=== PATIENT | male | born 1980 | race Caucasian/White ===

== ENCOUNTER 2023-11-14 13:10 | Outpatient (REF) | payer OTHER, SELFPAY | END 2023-11-14 13:11 | disposition home or self-care (01) | LOC: HO.BBR 13:10 | PROVIDERS: Visit Provider Physician Assistant | DX: D75.1 Secondary polycythemia (principal) | CPT/HCPCS: 85014; 85018; 99195 ==

== ENCOUNTER 2024-06-10 10:56 | Outpatient (REF) | payer OTHER, SELFPAY | END 2024-06-10 10:57 | disposition home or self-care (01) | LOC: HO.BBR 10:56 | PROVIDERS: Visit Provider Family Medicine | DX: D75.1 Secondary polycythemia (principal) | CPT/HCPCS: 85018; 99195 ==

== ENCOUNTER 2024-09-11 13:01 | Outpatient (REF) | payer OTHER, SELFPAY ==
--- OUTSIDE RECORDS SUMMARY | 2024-09-11 14:08 | XMS_ITS | Continuity of Care Document ---
Author Organization [facility] Address [address] [address] [place] [address] Phone Care Team Providers Care Awning Hanger Supervisor Name Role Phone [place] OD, Chasity Unavailable Unavailable Allergies, Adverse Reactions, [...] Date Provider Providers Copied on Encounter [facility], [address] [address], [place], [place], [address], tel:[phone] [facility] The patient reports stable vision (chief complaint) Examination of eyes and vision with abnormal findings Z01.01Myopia , bilateral H52.13 1 Eileen Gaspar. [address], [address], [place], [place], [address], [place]. tel:[phone] Referring Provider: Chasity Linda, [employer] [address], [place], [address]. tel:[phone] [facility], [address] [address], [place], [place], [address], tel:[phone] [place] Patient presents for a contact lens fitting. (chief complaint) Myopia, bilateral H52.13 201 8 Eileen Gaspar. [address], [address], [place], [place], [address], [place]. tel:[phone] Referring Provider: Chasity Linda, [address], [place], [address]. 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 [address], [address], [place], [place], [address], [place]. tel:[phone] Referring Provider: Saul Thompson, [address], [place], [address]. tel:[phone] [facility], [address] [address], [place], [place], [address], tel:[phone] [place] No Information 8 Update [employer]. [employer] [address], [place], [place], [address]. tel:[phone] [facility], [address] [address], [place], [place], [address], [place] tel:[phone] [place] Patient presents to clinic for comprehensive eye with c (chief complaint)Susi soto reports blurred vision in left eye starting 1 m (chief complaint) Chronic giant papillary conjunctivit is, bilateral H10.413Benig n neoplasm of right retina D31.21Vitreo us floaters, bilateral H43.393Dry eye syndrome of bilateral lacrimal glands H04.123Myopi a, bilateral H52.13Examin ation of eyes and vision with abnormal findings Z01.01 8 Guero Hughes. [employer] [address], [address], [place], [place], [address], . tel:[phone] Referring Provider: Saul Thompson, [address], [place], [address]. tel:[phone] Family History Family Member Type Diagnosis Age At Onset Problem (finding) No relevant family hist ory Payers Payer name Insurance type Covered republican ID Authoriza tion(s) [employer] Plan CI [id number] Social History Type Description Quantity Date Captured [...] Patient educated on the risks associated with shelter use of steroids. Related to Chronic giant papillary conjunctivitis, bilateral H10.413 - Spec Rx given at patient's [facility] uest Related to Myopia, bilateral H52.13 [...]
== END 2024-09-11 13:02 | disposition home or self-care (01) ==
LOC: HO.BBR 13:01
PROVIDERS: Visit Provider Family Medicine
DX: D75.1 Secondary polycythemia (principal)
CPT/HCPCS: 85018; 99195

== ENCOUNTER 2024-12-10 12:56 | Outpatient (REF) | payer OTHER, SELFPAY ==
--- OUTSIDE RECORDS SUMMARY | 2024-12-10 15:34 | XMS_ITS | Data Portability ---
Author Organization [facility] Address [address] [place] [address] Care Team Providers Care Emergency Dept Tech Name Role Phone ALEX STOUT Primary Care Provider ALEX STOUT Referring Provider [phone] Assessment Encounter Date Assessment Date Assessment LastModified by Organization Details LastModified Time 07/06/2016 07/06/2016 vaginal atrophy; urinary frequecy adisciullo Not available 07/06/2016 15:57:35 Plan of Treatment Reminders Order Date Submit Date Provider Last Modified By Organization Details Last Modified Time Details Appointments None recorded. Lab pap, LB + HR HPV 2015 [facility] (Lab), [address], [place], [address], 6 14:24:02 urinalysi s, dipstick 2015 016 adisciullo Not available 6 07:48:59 Referral None recorded. Procedures measureme nt of post-void ing residual urine and/or bladder capacity (PROC) 2015 016 adisciullo Not available 07:48:59 Surgeries None recorded. Imaging None recorded. Medication Orders Vagifem 10 mcg vaginal tablet 2015 016 adisciullo [id number], [address] , [place], [address], 6 16:02:25 Patient TargetsNo targets recorded. Patient Instructions Encounter Date Encounter Id Patient Instructions Last Modified By Organization Details Last Modified Time 07/06/2016 [id number] atrophic vaginitis: care instructions teenaarmand Not available 07/12/2016 08:57:46 Vaginal atrophy may be cause of urinary frequency, a symptom which is quite bothersome. Vagifem will be prescribed. Cystoscopy will be scheduled adisciullo Not available 07/06/2016 16:02:25 Reason for Referral None Reported. Results Created Date Observation Date Name Description Value Unit Range Abnormal Flag Note LastModifiedBy Organization Detail LastModifiedTime 07/06/20 16 07/06/2016 urina lysis , dipst ick leukocytes negati ve Not Available [facility] Urogyn [id number] 07/06/2016 15:47:07 07/06/20 16 07/06/2016 urina lysis , dipst ick nitrite negati ve Not Available [facility] n Urogyn [id number] 07/06/2016 15:47:07 07/06/20 16 07/06/2016 urina lysis , dipst ick blood negati ve Not Available [facility] Urogyn [id number] 07/06/2016 15:47:07 07/06/20 16 07/06/2016 measu remen t of post- voidi ng resid ual urine and/o r bladd er capac ity (PROC ) Method Bladde r Scan Not Available [facility] n Urogyn 52705 07/06/2016 15:47:07 07/06/20 16 07/06/2016 measu remen t of post- voidi ng resid ual urine and/o r bladd er capac ity (PROC ) Value 30mL Not Available [facility] Violetasonia moya Urogyn [id number] 07/06/2016 15:47:07 07/06/20 16 07/06/2016 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 [address] PAGE 1 RUN TIME: 1204 Speci men Inqui ry RUN USER: MEDIT ECH ----- ----- ----- ----- ----- ----- ----- ----- ----- ----- ----- ----- ----- ----- ----- ----- ----- ----- -- PATIE NT: JANENEMAGALY STELLASHELLEY 295 LOC: [facility] #: [id number] AGE/S X: 36/F ROOM: RE07/[address]: Alex Urbano M.D. : 02/03 BED: DIS: STATU S: REG REF TLOC: ----- ----- ----- ----- ----- ----- ----- ----- ----- ----- ----- ----- ----- ----- ----- ----- ----- ----- -- SPEC #: [id number] RECD: 07/07 608 STATU S: SOUT REQ #: [id number] FANNIE: 07/06- SUBM DR: Alex Urbano M.D. 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 VAGIN A ELIZABETH Stallings dum #1 Enter ed: 07/18- 203 ELIZABETH KEITA TO REPOR T: Insuf ficie nt fluid remai lupillo for HPV mRNA madeleine sis by Holog ic HPV assay . At least 1.0ml of ThinP rep sampl e must remai n follo wing cytol ogic madeleine sis. Elizabeth MARQUEZ CT( CP),G 07/18 1203 ----- ----- ----- ----- ----- ----- ----- ----- ----- ----- ----- ----- ----- ----- ----- ----- ----- ----- -- FINAL DIAGN OSIS NEGAT LONI FOR INTRA EPITH ELIAL LAURENT Frias OR MALKA WILL . HPV DNA testi ng for high risk subty pes will be perfo rmed at the reque st of order ing mary dickinson and the resul t will be repor myrtle in an adden dum. Atrop sandeep al es prese nt. Mala Hight on, CT( CP) Repor t Elect tram urena This Pap test was scree lupillo using the compu teriz ed ThinP rep Imagi ng Syste m, then nafisa huerta revsukh wed and inter prete d. CLINI DIANE HISTO RY MENST RUAL STATU S : POST MENOP AUSAL PREVI OUS ABNOR MAL: NOT GIVEN GONSALO GOMEZ ON NEXT PAGE ----- ----- ----- ----- ----- ----- ----- ----- ----- ----- ----- ----- ----- ----- ----- ----- ----- ----- -- RUN DATE: 07/18 [place] [address] PAGE 2 RUN TIME: 1204 Speci men Inqui lior RUN USER: JOSIAH RESTREPO ----- ----- ----- ----- ----- ----- ----- ----- ----- ----- ----- ----- ----- ----- ----- ----- ----- ----- -- SPEC #: [id number] PATIE NT: [facility] #[id number] (Cont inued ) ----- ----- ----- ----- ----- ----- ----- ----- ----- ----- ----- ----- ----- ----- ----- ----- ----- ----- -- CLINI DIANE HISTO RY (Cont inued ) CLINI DIANE HISTO RY OTHER : HPV TESTI NG IF NEGAT LONI MYRIAM PAP [facility] ACY:Marie Jeffries FOR INTER PRETA TION ----- ----- ----- ----- ----- ----- ----- ----- ----- ----- ----- ----- ----- ----- ----- ----- ----- ----- -- Angie urena DEAN ON CT( CP)Alexy IS 07/17 1421 ----- ----- ----- ----- ----- ----- ----- ----- ----- ----- ----- ----- ----- ----- ----- ----- ----- ----- -- END OF REPOR T Not Available [facility] [address], [place], [address], 07/18/2016 12:04:45 07/06/20 16 07/06/2016 HPV, high- risk, cervi diane HPV request CANCEL LED Not Available [facility] [address] [place], [address], 07/18/2016 10:55:17 Result Notes None recorded. Problems Name Problem SNOMED Code Status Onset Date Resolution Date Notes Provider Name and Address Organization Details Recorded Time Atrophic vaginitis 77203845 Active Kevin Allen MD [address] [place], [address] , [facility] 6 16:02:25 Problem Notes None recorded. Procedures Surgical History Date Name Laterality Status Provider Name and Address Organization Details Recorded Time 9 Hysterectomy completed [facility] 07/06/2016 15:33:50 5 Mastectomy completed [facility] 07/06/2016 15:33:50 Imaging Results None recorded. Procedure Notes None recorded. Medical Equipment None Reported. Medications Name Sig Start Date Stop Date Status Note LastModified by Organization Details LastModified Time doxycycline hyclate 100 mg capsule active Not Available Not Available Not Available metronidazole 500 mg tablet active Not Available Not Availabl e Not Available ciprofloxacin 500 mg tablet active Not Available Not Availabl e Not Available amoxicillin 500 mg tablet active Not Available Not Availabl e Not Available imiquimod 5 % topical cream packet active Not Available Not Available Not Available testosterone cypionate 200 mg/mL intramuscular oil active Not Available Not Available Not Available BD Luer-Luis E Syringe 3 mL 18 x 1 1/2 active Not Available Not Available Not Available BD Luer-Luis E Syringe 3 mL 22 x 1 1/2 active Not Available Not Available Not Available doxycycline hyclate 100 mg tablet active Not Available Not Available Not Available Truvada 200 mg-300 mg tablet active Not Available Not Available Not Available Yuvafem 10 mcg vaginal tablet INSERT 1 TABLET EVERY DAY BY VAGINAL ROUTE FOR 14 DAYS DIRECTED THEN TWICE A WEEK active Not Available Not Available No t Available Vitals Date Recorded Body height Body mass index (BMI) Body weight Systolic blood pressure Diastolic blood pressure Provider Name and Address Organization Details Last Updated DateTime 07/06/2016 172.72 cm 24.9 kg/m2 75785.14 868 g 120 mm[Hg] 80 mm[Hg] [facility] 6 15:27:41 Social History Question Answer Notes LastModified by Organizat ion Details LastModified Time Tobacco Smoking Status Former Smoker [facility] [place] [place] - [facility] 07/06/2016 15:33:50 What Is Your Level Of Alcohol Consumption? Occasional Information not available 07/06/2016 What Type Of Diet Are You Following? REGULAR Information not available 07/06/2016 Which Illicit Or Recreational Drugs Have You Used? 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 No Information not available 07/06/2016 Sex: Unknown Functional Status None recorded. Mental Status None recorded. Family History Relationship Description Onset Age of this Age Resolved Age Notes LastModified by Organization Details LastModified Time Paternal Grandmother Malignant tumor of breast fmcneil Not available 2015 15:33:50 Medical History Condition Response Diabetes N Other N Thyroid Disease N High Blood Pressure N Lung Disorder or Asthma N Hyperlipidemia N Cancer N Kidney or Bladder Problems N Cardiac Disease N Anemia or Blood Disorder N GI Disorders N Neurologic Disease N None Reported N Psychiatric Disease Y Osteoporosis N Thrombophilias N Gynecological History Statement/Question Response Date of Last Mammogram None Date of Last Bone Density Test None Date of Last Colonoscopy None Date of Last Pap 8 years ago Sexual Activity Yes Abnormal Pap None Obstetrics History GPAL:G 0 P 0 0 0 0 Past Encounters Encounter ID Performer Location Encounter Start Date Encounter Closed Date Diagnosis/Indication Diagnosis SNOMED-CT Code Diagnosis ICD10 Code Diagnosis Note [id number] Kevin Allen MD [facility] [address] [place] [address] 07/06/2016 15:23:20 07/06/2016 15:59:27 Atrophic vaginitis 80212902 N95.2 Increased frequency of urination 046559661 R35.0 Gynecologi c examination 37844904 Z01.419 Health Concerns Section Related Observation LastModified by Organization Detai ls LastModified Time None Recorded Concern Status LastModified by Organization Details LastModified Time None Recorded Advance Directives Directive None Recorded Payers Encounter Date Sequence Insurance Name Policy Number Policy Silva Covered Member ID Silva Member ID Guarantor Name 07/06/2016 1 [facility] Freda Rivero [id number] Freda Rivero Notes Date Note Type Note Provider Name and Address Organization Details Recorded Time 07/06/2016 text/html 36 yo transgende r ([id number]) with a 2 month history of uriary frequency q2h and nocturia x1. He has had hysterectomy and BSO, on IM testosterone therapy for 12 years. Not sexually active at this time. Has had some abdominal pain and cramps, sometimes associated with voiding. Recent CT was unremarkable. No hx kidney stones. Three recent urine tests negative for infection. He has also had abdominal pain especially in RLQ. Mesenteric adenittis and colitis have resolved according to recent CT Kevin Allen MD [address] [place], [address], [facility] 07/06/2016 16:05:01 OBGyn Episode No OBEpisode recorded.
--- OUTSIDE RECORDS SUMMARY | 2024-12-10 15:34 | XMS_ITS | Continuity of Care Document ---
Author Organization [facility] Address [address] [address] [place] [address] Phone Care Team Providers Care Thermal Molder Name Role Phone Ogden OD, Chasity Unavailable Unavailable Allergies, Adverse Reactions, [...] Date Provider Providers Copied on Encounter [facility], [address] [address], [place], [place], [id number], tel:[phone] [facility] The patient reports stable vision (chief complaint) Examination of eyes and vision with abnormal findings Z01.01Myopia , bilateral H52.13 1 Eileen Gaspar. [address], [address], [place], [place], [id number], [place]. tel:[phone] Referring Provider: Chasity Linda, [facility] [address], [place], [address]. tel:[phone] [facility], [address] [address], [place], [place], [id number], tel:[phone] [place] Patient presents for a contact lens fitting. (chief complaint) Myopia, bilateral H52.13 201 8 Eileen Gaspar. [address], [address], [place], [place], [id number], [place]. tel:[phone] Referring Provider: Chasity Linda, [address], [place], [address]. 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 [address], [address], [place], [place], [id number], [place]. tel:[phone] Referring Provider: Saul Thompson, [address], [place], [address]. tel:[phone] [facility], [address] [address], [place], [place], [id number], tel:[phone] [place] No Information 8 Update [employer]. [facility] [address], [place], [place], [id number]. tel:[phone] [facility], [address] [address], [place], [place], [id number], [place] tel:[phone] [place] Patient presents to clinic for comprehensive eye with c (chief complaint)Susi soto reports blurred vision in left eye starting 1 m (chief complaint) Chronic giant papillary conjunctivit is, bilateral H10.413Benig n neoplasm of right retina D31.21Vitreo us floaters, bilateral H43.393Dry eye syndrome of bilateral lacrimal glands H04.123Myopi a, bilateral H52.13Examin ation of eyes and vision with abnormal findings Z01.01 8 Guero Hughes. [facility] [address], [place], [place], [id number], . tel:[phone] Referring Provider: Saul Thompson, [address], [place], [address]. tel:[phone] Family History Family Member Type Diagnosis Age At Onset Problem (finding) No relevant family hist ory Payers Payer name Insurance type Covered libertarian ID Authoriza tion(s) [employer] CI [id number] Social History Type Description Quantity Date Captured [...] H10.413 - The patient was co unseled in detail on the diagnosis and understands. Return to clinic if symptoms worsen or do not improve. Patient instructed to start:- Artificial tears 4x/day (Recommend: Systane or Refresh) Related to Dry eye syndrome of bilateral lacrimal glands H04.123 - Spec Rx given at patient's [facility] Related to Myopia, bilateral H52.13 - The patient was co unseled on [...] Patient educated on the risks associated with fdc use of steroids. Related to Chronic giant papillary conjunctivitis, bilateral H10.413 Assessments Type Assessment Date assessment Examination of eyes and vision w ith abnormal findings Z01.01 assessment Myopia, bilateral H52.13 2020 Patient Care Teams Name Effective Dates (start - stop) Status Members No Information
== END 2024-12-10 12:57 | disposition home or self-care (01) ==
LOC: HO.BBR 12:56
PROVIDERS: Visit Provider Family Medicine
DX: D75.1 Secondary polycythemia (principal)
CPT/HCPCS: 85014; 85018; 99195

== ENCOUNTER 2025-03-11 12:53 | Outpatient (REF) | payer OTHER, SELFPAY ==
--- OUTSIDE RECORDS SUMMARY | 2021-04-26 05:00 | XMS_ITS | Continuity of Care Document ---
Author Organization [facility] Address [address] [address] [place] [address] Phone Care Team Providers Care Curing Press Operator Name Role Phone Eileen OD, Chasity Unavailable Unavailable Allergies, Adverse Reactions, Alerts Substance Reaction Status Criticality No Known Allergies Active No Inform ation Medications Medication Instructions Dosage Effective Dates (start - stop) Status Comments thyroid (pork) 60 mg tablet take 1 tablet by oral route every day 60 MG - Active fluorometholone 0.1 % eye drops,suspension instill 1 drop by ophthalmic route 4 times every day into both eyes 1 drop - No Longer Active For future refills, patient must see provider Malarone 250 mg-100 mg tablet take 1 tablet by oral route every day 1.00 tablet - No Longer Active testosterone 50 mg/5 gram (1 %) transdermal gel apply (50MG) by transdermal route every day (1 tube = 50 mg) in the morning to shoulders and/or upper arms divided evenly between areas 50 MG - No Longer Active Procedures Procedure Date Comp eye examination, estab patient Determination of refractive state Contact Lens Fitting Annual Exam 2020 Eval/Manage Level I Contact Lens Fitting SC Est Intermed eye exam, estab patient 2017 Comprehensive eye exam, new patient Determination of refractive state Advance Directives Directive Yes / No Effective Date File Name No Information Encounters Encounter Description Practice Location Reason(s) For Visit Diagnoses Date Provider Providers Copied on Encounter [facility], [address] [address], [place], [place], [address], tel:[phone] [facility] The patient reports stable vision (chief complaint) Examination of eyes and vision with abnormal findings Z01.01Myopia , bilateral H52.13 1 Eileen Gaspar. [address], [address], [place], [place], [address], [place]. tel:[phone] Referring Provider: Chasity Linda, [facility] [address], [place], [address]. tel:[phone] [facility], [address] [address], [place], [place], [address], tel:[phone] [place] Patient presents for a contact lens fitting. (chief complaint) Myopia, bilateral H52.13 201 8 Eileen Gaspar. [address], [address], [place], [place], [address], [place]. tel:[phone] Referring Provider: Chasity Linda, [address], [place], [address]. 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 [address], [address], [place], [place], [address], [place]. tel:[phone] Referring Provider: Saul Thompson, [address], [place], [address]. tel:[phone] [facility], [address] [address], [place], [place], [address], tel:[phone] [place] No Information 8 Update [employer]. [facility] [place] [place], [place], [place], [address]. tel:[phone] [facility], [address] [address], [place], [place], [address], [place] tel:[phone] [place] Patient presents to clinic for comprehensive eye with c (chief complaint)Susi soto reports blurred vision in left eye starting 1 m (chief complaint) Chronic giant papillary conjunctivit is, bilateral H10.413Benig n neoplasm of right retina D31.21Vitreo us floaters, bilateral H43.393Dry eye syndrome of bilateral lacrimal glands H04.123Myopi a, bilateral H52.13Examin ation of eyes and vision with abnormal findings Z01.01 8 Guero Hughes. [facility] [address], [place], [place], [address], . tel:[phone] Referring Provider: Saul Thompson, [address], [place], [address]. tel:[phone] Family History Family Member Type Diagnosis Age At Onset Problem (finding) No relevant family hist ory Payers Payer name Insurance type Covered republican ID Authoriza tion(s) [employer] Plan CI [id number] Social History Type Description Quantity Date Captured Comments Alcohol Use Details No Caffeine Use Details Unknown Tobacco Use Status Never smoked tobacco 2020 Smoking Status Never smoker Non-Smoking Tobacco Use Details : No Details Available : No Details Available Sex Male Chief Complaint And Reason For Visit From encounter dated '04/26/2021 09:00'. The patient reports stable vision (chief complaint) Reason For Referral Reason For Referral No Information History Of Present Illness Encounter Date Complaint History Of Prese nt Illness The patient reports stable visio n The patient reports stable vision in both eyes with his glasses and contact lenses. Vision is good and he states his contacts are comfortable and vision is good. Patient presents for a contact lens fitting. Patient presents for a contact lens fitting. Patient states he has worn contact lenses before. He just needs an updated contact RX. {eyeChiefComplai nt_.cc3_comments} Patient presents to clinic for GPC follow up Patient presents to clinic for GPC follow up. Patient states he has been on FML drops 4 x a day for 1 week, then 2 x a day for 1 week, and has not taken an drops today. Patient reports that his symptoms have improved but still feels they are mildly present. Patient has discontinued CL for 2 weeks {eyeChiefComplai nt_.cc3_comments} Patient presents to clinic for comprehensive eye with c Patient presents to clinic for comprehensive eye with complaints of floaters in left and right eye. Floaters described as 1 in each eye. Patient denies flashes of light or curtain/shadow in vision. Onset 1 month ago. Functional Status Date Functional Assessmen t No Information Instructions Date Instruction Additional Infor rogelio - Explained in miguelina bearden, diagnosis with patient. New glasses and contact lenses prescription given today. Related to Myopia, bilateral H52.13 - Counseled patient on findings. New glasses prescription was given today. Dispensed trial lenses today. Generated Rx today. Follow up as needed. Related to Myopia, bilateral H52.13 - Continue FML drops 2 x per day until seen next. RTC in 2 weeks for follow up. Continue to stay out of CLs. RTC sooner if new problems experienced. Related to Chronic giant papillary conjunctivitis, bilateral H10.413 - The patient was co unseled on their treatment options. The patient was counseled on the signs and symptoms of a retinal detachment and understands. Patient instructed to call if condition gets worse. Will continue to observe condition and or symptoms. Reassured patient of current condition and treatment. Related to Vitreous floaters, bilateral H43.393 - Counseled patient on examination findings and all diagnosis. No treatment is indicated at this time. Will continue to observe. 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 The patient was counseled in detail on the diagnosis and understands. Patient educated on H2O2 cleaning solution. Patient educated on the risks associated with care home use of steroids. Related to Chronic giant papillary conjunctivitis, bilateral H10.413 - Spec Rx given at patient's [facility] uest Related to Myopia, bilateral H52.13 - The patient was co unseled in detail on the diagnosis and understands. Return to clinic if symptoms worsen or do not improve. Patient instructed to start:- Artificial tears 4x/day (Recommend: Systane or Refresh) Related to Dry eye syndrome of bilateral lacrimal glands H04.123 Assessments Type Assessment Date assessment Examination of eyes and vision w ith abnormal findings Z01.01 assessment Myopia, bilateral H52.13 2020 Patient Care Teams Name Effective Dates (start - stop) Status Members No Information
--- OUTSIDE RECORDS SUMMARY | 2025-03-11 13:22 | XMS_ITS | Data Portability ---
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 Plan of Treatment Reminders Order Date Submit Date Provider Last Modified By Organization Details Last Modified Time Details Appointments None recorded. Lab CBC w/ auto diff 2019 [facility] [address] [place] [address] Tristen Pulido, [place], [address], 0 22:37:38 ccp (cyclic citrullina kai peptide) igg, serum 2019 [facility] ([facility] [address] [place] [address] Tristen Pulido, [place], [address], 0 18:42:48 hepatitis (A+B+C) panel, serum 2019 [facility] [address] [place] [address] Tristen Pulido, [place], [address], 0 13:38:21 rf (rheumatoi d factor), serum 2019 [facility] ([facility] [address] [place] [address] Tristen Pulido, [place], [address], 0 18:17:49 TSH, serum or plasma 2019 [facility] [address] [place] [address] Tr[address], [place], [address], 0 13:38:20 uric acid, serum or plasma 2019 [facility] ([facility]), [address] [place] [address] Tr[address], [place], [address], 0 18:17:51 vitamin D3, 25-hydroxy , serum 2019 [facility]), [address] [place] [address] Tristen Pulido, [place], [address], 0 13:38:21 CK (creatine kinase), total, serum 2019 [facility] ([facility]), [address] [place] [address] Tristen Pulido, [place], [address], 0 18:17:46 ESR (erythrocy te sedimentat ion rate), blood 2019 [facility] ([facility]), [address] [place] [address] [address], [place], [address], 0 13:38:20 C-reactive protein, quantitati ve, serum or plasma 2019 [facility] ([facility]), [address] [place] [address] Tristen Pulido, [place], [address], 0 13:38:21 DEMARCUS (antinucle ar antibodies ) titer + pattern, ifa, serum 2019 [facility] ([facility]), [address] [place] [address] Tristen Pulido, [place], [address], 0 15:12:53 CMP, serum or plasma 2019 [facility] (Lab), [address], [place], [address], 0 18:17:[address] referral 2019 020 michelle Griffin Not available 0 13:58:22 Procedures None recorded. Surgeries None recorded. Imaging None recorded. Medication Orders None recorded. Patient TargetsNo targets recorded. Patient InstructionsNo instructions recorded. Reason for Referral Prosthetics Lab Technician Referral for Se rum creatinine above reference range 40 yo M with creatinine elevated 1.6 Referring Physician: Yessy Kim, Rheumatology, Encounter Date: 07/09/2020 Results Created Date Observation Date Name Description Value Unit Range Abnormal Flag Note LastModifiedBy Organization Detail LastModifiedTime 07/12/20 20 07/12/2020 CK (crea bertha kinas e), total , serum CK 91 U/L 37-242 Perfo rmed at [facility], [address], [place] [address] . CLIA 32D05 [id number] Not Available [facility] rg[facility]Patients, [place], [address], 07/12/2020 18:17:46 07/12/20 20 07/12/2020 CMP, serum or plasm a sodium 139 mmol/ L 134-14 4 Not Available [facility] rg[facility]Patients, [place], [address], 07/12/2020 18:17:48 07/12/20 20 07/12/2020 CMP, serum or plasm a potassium 3.8 mmol/ L 3.5-5. 1 Not Available [facility] rg[facility]Patients, [place], [address], 07/12/2020 18:17:48 07/12/20 20 07/12/2020 CMP, serum or plasm a chloride 107 mmol/ L 98-111 Not Available [facility]Patients, [place], [address], 07/12/2020 18:17:48 07/12/20 20 07/12/2020 CMP, serum or plasm a CO2 25 mmol/ L 20-30 Not Available [facility]Patients, [place], [address], 07/12/2020 18:17:48 07/12/20 20 07/12/2020 CMP, serum or plasm a anion gap 7 <15 Not Available [facility]Patients, [place], [address], 07/12/2020 18:17:48 07/12/20 20 07/12/2020 CMP, serum or plasm a glucose 96 mg/dL 60-100 Not Available [facility] rg[facility]Patients, [place], [address], 07/12/2020 18:17:48 07/12/20 20 07/12/2020 CMP, serum or plasm a BUN 18 mg/dL 7-31 Not Available [facility] rg[facility]Patients, [place], [address], 07/12/2020 18:17:48 07/12/20 20 07/12/2020 CMP, serum or plasm a creatinine 1.27 mg/dL 0.62-1 .66 Creat inine metho d is IDMS trace able. EstGF R Calcu latio n has been adjus kai. Not Available [facility] rg/Patients, [place], [address], 07/12/2020 18:17:48 07/12/20 20 07/12/2020 CMP, serum or plasm a eGFR non- AM 71 mL/mi n/1.7 3m2 >60 Effec tive 08/13 , CKD EPI eGFR calc repla freddie the MDRD eGFR calc. For more infor stas acuna go to www.k idney .org/ timothy tam als/K DOQI/ gfr. Not Available [facility]O rg/Patients, [place], [address], 07/12/2020 18:17:48 07/12/20 20 07/12/2020 CMP, serum or plasm a GFR comment FOR RUSSELL N AMERIC AN PATIEN TS, EGFR MUST BE MULTIP LIED BY 1.2 TO DERIVE A RACE CORREC KAI EGFR. Estim ated GFR value s are not accur ate in acute kidne y failu re, inpat ients on IV fluid s, obese (BMI> 34) or under weigh t (BMI< 20) peopl e, the very old or very young , races other than Cauca toby or Afric an Ameri can, peopl e with acute illne sses, or amput ation s. Not Available [facility]O rg/Patients, [place], [address], 07/12/2020 18:17:48 07/12/20 20 07/12/2020 CMP, serum or plasm a calcium 9.7 mg/dL 8.4-10 .4 Not Available [facility] rg[facility]Patients, [place], [address], 07/12/2020 18:17:48 07/12/20 20 07/12/2020 CMP, serum or plasm a total protein 7.9 gm/dL 6.1-8. 2 Not Available [facility] rg/Patients, [place], [address], 07/12/2020 18:17:48 07/12/20 20 07/12/2020 CMP, serum or plasm a albumin 4.3 gm/dL 3.4-4. 7 Not Available [facility] rg[facility]Patients, [place], [address], 07/12/2020 18:17:48 07/12/20 20 07/12/2020 CMP, serum or plasm a globulin 3.6 gm/dL 2.4-4. 2 Not Available [facility] rg[facility]Patients, [place], [address], 07/12/2020 18:17:48 07/12/20 20 07/12/2020 CMP, serum or plasm a bilirubin, total 1.0 mg/dL 0.3-1. 2 Not Available [facility] rg/Patients, [place], [address], 07/12/2020 18:17:48 07/12/20 20 07/12/2020 CMP, serum or plasm a alk phos 72 U/L 38-150 Not Available [facility] M ain [facility] rg/Patients, [place], [address], 07/12/2020 18:17:48 07/12/20 20 07/12/2020 CMP, serum or plasm a AST(SGOT) 20 U/L 6-58 Not Available [facility] rg/Patients, [place], [address], 07/12/2020 18:17:48 07/12/20 20 07/12/2020 CMP, serum or plasm a ALT(SGPT) 34 U/L 14-67 Perfo rmed at [facility], [address], [place] [address] . CLIA [id number] Not Available [facility]Patients, [place], [address], 07/12/2020 18:17:48 07/12/2007/12/2020 C react arthur prote in, QN, serum or plasm a C-reactive protein <0.3 mg/dL 0.0-0. 8 Perfo rmed at [facility], [address], [place] [address] . CLIA 32D05 [id number] Not Available [facility] or [facility]O rg/Patients, [place], [address], 07/12/2020 18:17:49 07/12/20 20 07/12/2020 rf (rheu matoi d facto r), serum rheumatoid factor <10 IU/mL <15.0 Perfo rmed at [facility], [address], [place] [address] . CLIA 32D05 66802 Not Available [facility]O rg/Patients, [place], [address], 07/12/2020 18:17:49 07/12/20 20 07/12/2020 TSH, ultra -sens itive , serum TSH 2.770 uIU/m L 0.358- 3.740 All TSH value s repre sent 3rd gener ation TSH. Perfo rmed at [facility], [address], [place] [address] . CLIA 32D05 [id number] Not Available [facility] rg/Patients, [place], [address], 07/12/2020 18:17:50 07/12/20 20 07/12/2020 uric acid, serum or plasm a uric acid 6.4 mg/dL 3.2-9. 1 Perfo rmed at [facility], [address], [place] [address] . CLIA 32D05 [id number] Not Available [facility] rg/Patients, [place], [address], 07/12/2020 18:17:51 07/12/20 20 07/12/2020 nucle ar Ab, QL, IA, serum DEMARCUS screen NEGATI VE negati ve Perfo rmed at [facility], [address], [place] [address] . CLIA 32D05 90505 Not Available [facility]Patients, [place], [address], 07/12/2020 18:42:47 07/12/20 20 07/12/2020 ccp (cycl ic citru llina kai pepti de) igg, serum ccp antibody IgG 1.0 U/mL 0.0-2. 9 Perfo rmed at [facility], [address], [place] [address] . CLIA 32D05 84443 Not Available [facility]Patients, [place], [address], 07/12/2020 18:42:48 07/12/20 20 07/12/2020 hepat itis panel (A+B+ C), acute , serum hep B surface Ag NONREA CTIVE nonrea ctive Not Available [facility] rg[facility]Patients, [place], [address], 07/12/2020 19:02:48 07/12/20 20 07/12/2020 hepat itis panel (A+B+ C), acute , serum hep B core IgM NONREA CTIVE nonrea ctive Not Available [facility] rg[facility]Patients, [place], [address], 07/12/2020 19:02:48 07/12/20 20 07/12/2020 hepat itis panel (A+B+ C), acute , serum hep A Ab IgM NONREA CTIVE nonrea ctive Not Available [facility] rg[facility]Patients, [place], [address], 07/12/2020 19:02:48 11/02/07/12/2020 hepat itis panel (A+B+ C), acute , serum hep C antibody NONREA CTIVE nonrea ctive Not Available [facility] rg/Patients, [place], [address], 07/12/2020 19:02:48 07/12/20 20 07/12/2020 hepat itis panel (A+B+ C), acute , serum signal/cutof f ratio 0.11 {s_co _rati o} 0.00-0 .89 HCV scree n perfo rmed by the [facility] HCV Ab assay . Signa l to cutof f ratio s great er than 11 indic ate a true posit arthur 99% of the time. Lyndsay key MD Perfo rmed at [facility], [address], [place] [address] . CLIA 32D05 [id number] Not Available [facility]Patients, [place], [address], 07/12/2020 19:02:48 07/12/20 20 07/12/2020 CBC w/ auto diff WBC 6.5 x10e3 /uL 4.0-11 .0 Not Available [facility] rg[facility]Patients, [place], [address], 07/12/2020 22:37:38 07/12/2007/12/2020 CBC w/ auto diff RBC 6.12 x10e6 /uL 4.64-6 .00 high Not Available [facility] rg[facility]Patients, [place], [address], 07/12/2020 22:37:38 07/12/20 20 07/12/2020 CBC w/ auto diff HGB 17.6 gm/dL 13.5-1 7.7 Not Available [facility] rg[facility]Patients, [place], [address], 07/12/2020 22:37:38 07/12/20 20 07/12/2020 CBC w/ auto diff HCT 53 % 42-53 Not Available [facility] rg/Patients, [place], [address], 07/12/2020 22:37:38 07/12/20 20 07/12/2020 CBC w/ auto diff MCV 86 fL 81-101 Not Available [facility] rg[facility]Patients, [place], [address], 07/12/2020 22:37:38 07/12/20 20 07/12/2020 CBC w/ auto diff MCHC 33.3 gm/dL 31.1-3 5.5 Not Available [facility] rg[facility]Patients, [place], [address], 07/12/2020 22:37:38 07/12/20 20 07/12/2020 CBC w/ auto diff RDW 13.0 % 11.0-1 4.5 Not Available [facility] rg[facility]Patients, [place], [address], 07/12/2020 22:37:38 07/12/20 20 07/12/2020 CBC w/ auto diff platelets 200 x10e3 /uL 150-40 0 Not Available [facility] rg/Patients, [place], [address], 07/12/2020 22:37:38 07/12/20 20 07/12/2020 CBC w/ auto diff diff type AUTO DIFF Not Available [facility] Leni n [facility] rg/Patients, [place], [address], 07/12/2020 22:37:38 07/12/20 20 07/12/2020 CBC w/ auto diff neutrophils 63 % Not Available [facility] rg[facility]Patients, [place], [address], 07/12/2020 22:37:38 07/12/20 20 07/12/2020 CBC w/ auto diff lymphocytes 26 % Not Available [facility] rg[facility]Patients, [place], [address], 07/12/2020 22:37:38 07/12/20 20 07/12/2020 CBC w/ auto diff monocytes 7 % Not Available [facility] rg[facility]Patients, [place], [address], 07/12/2020 22:37:38 07/12/20 20 07/12/2020 CBC w/ auto diff eosinophils 3 % Not Available [facility] rg[facility]Patients, [place], [address], 07/12/2020 22:37:38 07/12/20 20 07/12/2020 CBC w/ auto diff basophils 1 % Not Available [facility] rg[facility]Patients, [place], [address], 07/12/2020 22:37:38 07/12/20 20 07/12/2020 CBC w/ auto diff abs. neutrophil 4.0 x10e3 /uL 1.8-7. 0 Not Available [facility] rg[facility]Patients, [place], [address], 07/12/2020 22:37:38 07/12/20 20 07/12/2020 CBC w/ auto diff abs. lymphocyte 1.7 x10e3 /uL 1.0-3. 4 Not Available [facility]Patients, [place], [address], 07/12/2020 22:37:38 07/12/20 20 07/12/2020 CBC w/ auto diff abs. monocyte 0.4 x10e3 /uL 0.2-0. 8 Not Available [facility] rg[facility]Patients, [place], [address], 07/12/2020 22:37:38 07/12/20 20 07/12/2020 CBC w/ auto diff abs. eosinophil 0.2 x10e3 /uL 0.0-0. 3 Not Available [facility]Patients, [place], [address], 07/12/2020 22:37:38 07/12/20 20 07/12/2020 CBC w/ auto diff abs. basophil 0.1 x10e3 /uL 0.0-0. 1 Perfo rmed at [facility], [address], [place] [address] . CLIA [id number] Not Available [facility]Patients, [place], [address], 07/12/2020 22:37:38 07/12/20 20 07/12/2020 eryth rocyt e sedim entat ion rate by diego davisren metho d ESR westergren 2 mm/HR 0-15 Perfo rmed at [facility], [address], [place] [address] . CLIA 32D05 [id number] Not Available [facility]Patients, [place], [address], 07/13/2020 00:22:51 07/12/20 20 07/13/2020 DEMARCUS (anti nucle ar antib odies ) titer + darleen moya, ifa, serum DEMARCUS titer 1:40 titer negati ve abnormal Not Available [facility] rg[facility]Patients, [place], [address], 07/13/2020 15:12:53 11/02/07/13/2020 DEMARCUS (anti nucle ar antib odies ) titer + patte rn, ifa, serum DEMARCUS pattern SPECKL ED AND NUCLEO LAR patte rn negati ve abnormal Mixed patte rn - Speck led and Nucle olar: A high DEMARCUS titer is gener ally great er than 1:320 . A mixed DEMARCUS patte rn is frequ ently seen in SLE or relat ed disea ses. It may also be encou ntere d in other colla gen vascu lar disea se as well. It is frequ ently not possi ble to pin-p oint the immun ologi c speci ficit ies of the DEMARCUS based on morph ologi c patte rns alone . If MCTD, SLE or scler oderm a is suspe ct, recom mend anti- LEATHER SKINNER, anti- Sm and anti- DNA, or Scl-7 0 antib katrina. Perfo rmed at [facility], [address], [place] [address] . CLIA 32D05 [id number] Not Available [facility]Patients, [place], [address], 07/13/2020 15:12:53 07/12/2007/16/2020 vitam in D, 25-hy droxy , total , serum D2 <5 NG/mL Not Available [facility] rg[facility]Patients, [place], [address], 07/16/2020 08:47:53 07/12/2007/16/2020 vitam in D, 25-hy droxy , total , serum D3 17 NG/mL Not Available [facility] rg[facility]Patients, [place], [address], 07/16/2020 08:47:53 07/12/2007/16/2020 vitam in D, 25-hy droxy , total , serum D2 D3 total 17 NG/mL >29 low Recen t liter ature has sugge sted the follo wing range s for the class ifica tion of total 25 OH Vitam in D statu s witho ut suppl ement ation : Insuf ficie ncy: <20 ng/mL Hypov itami nosis D: 20-30 ng/mL Suffi cienc y: 30-10 0 ng/mL Toxic ity: Great er than 100 ng/mL For the monit oring and treat ment of patie nts on Vitam in D suppl ement (s), pleas e refer to the Total Vit D level (tota l Vit D is the sum of D2 and D3). Varia tions may occur due to frequ ency and amoun t of dose. This test was devel oped and its perfo rmanc e jonn cteri stics deter mined by [facility]. It has not been clear ed or appro inge by the FDA. [facility] is regul ated under CLIA as quali fied to perfo rm high- compl exity testi ng. This test is used for clini diane purpo ses. It shoul d not be regar ded as inves tigat ional or for resea rch. Perfo rmed at [facility], [address], [place] [address] . CLIA 32D05 [id number] Not Available [email or web address], [place], [address], 07/16/2020 08:47:53 Result Notes None recorded. Problems Name Problem SNOMED Code Status Onset Date Resolution Date Notes Provider Name and Address Organization Details Recorded Time Muscle pain 07883717 Active 020 Yessy Kim MD [address] [place] [address], [phone], [place] RENNY Kim MD 0 13:39:48 Vitamin D deficiency 68444477 Active 020 Yessy Kim MD [address] [place] [address], [phone], [place] RENNY Kim MD 0 12:33:38 Problem Notes None recorded. Procedures Surgical History Date Name Laterality Status Provider Name and Address Organization Details Recorded Time 09/10/19 10 hysterectomy completed Kailee Kim MD 07/09/2020 12:36:57 09/10/19 04 Unlisted px lungs & pleura completed Kailee Kim MD 07/09/2020 12:36:38 Imaging Results None recorded. Procedure Notes None recorded. Medical Equipment None Reported. Allergies No known drug allergies Medications Name Sig Start Date Stop Date Status Note LastModified by Organization Details LastModified Time clonazepam 1 mg tablet active Not Available Not Available No t Available ergocalcifer ol (vitamin D2) 1,250 mcg (50,000 unit) capsule Take 1 capsule every week by oral route for 90 days. active Not Available Not Available No t Available amoxicillin 875 mg-potassium clavulanate 125 mg tablet TAKE 1 TABLET BY MOUTH TWICE A DAY FOR 10 DAYS 07/09 completed Not Available Not Available Not Available escitalopram 10 mg tablet 07/09 completed Not Available Not Available Not Available cholestyrami ne (with sugar) 4 gram powder for susp in a packet 07/09 completed Not Available Not Available Not Available testosterone active Not Available Not Available Not Available DIRECTOR LEARNING Thyroid 60 mg tablet TAKE 1 TABLET BY MOUTH ONCE DAILY 07/09 completed Not Available Not Available Not Available itraconazole 200 mg tablet Take 1 tablet every week by oral route. 07/30 completed Not Available Not Available Not Available DIRECTOR LEARNING Thyroid 15 mg tablet TAKE 1 TABLET BY MOUTH ONCE DAILY 07/09 completed Not Available Not Available Not Available Vitals Date Recorded Body temperature Provider Name a nd Address Organization Details Last Updated DateTime 07/09/2020 96.9 [degF] Kailee Kim MD 07/09/2020 12:26:27 Date Recorded Body weight Body mass index (BMI) Body height Systolic blood pressure Diastolic blood pressure Provider Name and Address Organization Details Last Updated DateTime 07/09/2020 98237.81 g 28.5 kg/m2 170.18 cm 132 mm[Hg] 68 mm[Hg] Kalpana Kim MD 0 13:05:28 Date Recorded Body height Body temperature Body mass index (BMI) Body weight Systolic blood pressure Diastolic blood pressure Provider Name and Address Organization Details Last Updated DateTime 0 170.18 cm 97.1 [degF] 29.4 kg/m2 51198.3 7 g 114 mm[Hg] 68 mm[Hg] Kalpana Clemente Kim MD 0 12:05:23 Social History Question Answer Notes LastModified by Organizat ion Details LastModified Time Tobacco Smoking Status Former Smoker Kailee RENNY Auguste MD 07/05/2020 17:34:39 Do You Have An Advance Directive? No [email or web address] Information n ot available 07/09/2020 In The 14 Days Before Symptom Onset, Have You Had Close Contact With A Laboratory-confirm ed COVID-19 While That Case Was Ill? No [email or web address] Information n ot available 07/09/2020 In The 14 Days Before Symptom Onset, Have You Had Close Contact With A Person Who Is Under Investigation For COVID-19 While That Person Was Ill? No [email or web address] Information not available 07/09/2020 Have You Been To An Area Known To Be High Risk For COVID-19? No [email or web address] Information not available 07/09/2020 Marital Status Single [email or web address] Informat ion not available 07/05/2020 How Many Years Have You Smoked Tobacco? 15 [email or web address] Information not available 07/05/2020 Sex: Unknown Functional Status Question Answer Note LastModified by Organizat ion Details LastModified Time What is your level of alcohol consumption? 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 Moderate Gym and hike [email or web address] Information not available 07/05/2020 Mental Status None recorded. Family History Relationship Description Onset Age of this Age Resolved Age Notes LastModified by Organization Details LastModified Time Maternal Grandfather Heart disease [email or web address] Not available 12:37:16 Medical History Condition Response Migraines Y Depression Y Anxiety Disorder Y GERD/Reflux Y Past Encounters Encounter ID Performer Location Encounter Start Date Encounter Closed Date Diagnosis/Indication Diagnosis SNOMED-CT Code Diagnosis ICD10 Code Diagnosis Note [id number] Yessy Kim MD MAIN OFFICE [address] [place] [address] 07/09/2020 12:11:30 07/09/2020 13:40:14 Muscle pain 81147111 M79.18 I am concerned he is having side effects from itraconazo le since pain, fatigue and myalgias are common reactions. Discussed holding this to assess. Serum crea tinine above reference range 952598835 R79.89 Will recheck. Have advised him to avoid NSAIDs. I have given him a nephrology referral and if still elevated he will schedule this. Pain of mu ltiple joints 51097472 M25.561 M25.562 Will evaluate for inflammato ry arthritis. [id number] Yessy Kim MD MAIN OFFICE [address] [place] [address] 07/30/2020 11:58:46 07/30/2020 12:30:16 Muscle pain 67257017 M79.18 Likely 2/ itraconazo le, now improved. Renal function has also normalized . Discussed his normal lab panel. If he has new concerns I would be happy to see this pleasant patient back. Otherwise I will discharge him to the care of his primary. Vitamin D deficiency 347 31518 E55.9 Continue 50,000 IU weekly. Recommend rechecking level in 6 months. Health Concerns Section Related Observation LastModified by Organization Detai ls LastModified Time None Recorded Concern Status LastModified by Organization Details LastModified Time None Recorded Advance Directives Directive N: Payers Insurance Date Sequence Insurance Name Policy Number Policy Silva Covered Member ID Silva Member ID Guarantor Name 07/30/2020 1 [employer] - DOS ON OR AFTER 19 ([facility] [place] Freda Rivero [id number] Freda Rivero Notes Date Note Type Note Provider Name and Address Organization Details Recorded Time 07/09/2020 text/html 40 yo M referred for evaluation of joint pain. He has pain in his knees and elbows. He was diagnosed with Lyme disease 4 years ago when he was in the [facility]. He was treated with doxycycline for 3 months. It was a very stressful time and his mother suddenly during that time. Two months ago he had onset of systemic pain in his bones and muscles during a time of stress. This is when he noticed knee and elbow pain. Up to two months ago he was working out every day and he has stopped due to sensation of weakness in his shoulders. His left ankle is painful. He was having a sensation in his stomach that would radiate up into his chest and spine. He takes itraconazole for some issues with his gut and mold sensitivity. No back pain. Yessy Kim MD [address] [place] [address], [id number], RENNY - Yessy Kim MD 07/09/2020 13:43:57 07/30/2020 text/html 40 yo M referred for evaluation of joint pain. He has pain in his knees and elbows. He was diagnosed with Lyme disease 4 years ago when he was in the [facility]. He was treated with doxycycline for 3 months. It was a very stressful time and his mother suddenly during that time. Two months ago he had onset of systemic pain in his bones and muscles during a time of stress. This is when he noticed knee and elbow pain. Up to two months ago he was working out every day and he has stopped due to sensation of weakness in his shoulders. His left ankle is painful. He was having a sensation in his stomach that would radiate up into his chest and spine. He takes itraconazole for some issues with his gut and mold sensitivity. No back pain. 07/30/20: Vit D was 17. DEMARCUS was 1:40. Remainder of labs were normal. He is feeling much improved after stopping itraconazole. We sent an Rx for high dose vit D which he has started. He is working out again and doing well. Yessy Kim MD [address] [place], [address], RENNY Kim MD 07/30/2020 12:34:57
== END 2025-03-11 12:54 | disposition home or self-care (01) ==
LOC: HO.BBR 12:53
PROVIDERS: Visit Provider Family Medicine
DX: D75.1 Secondary polycythemia (principal)
CPT/HCPCS: 85018; 99195

== ENCOUNTER 2025-03-26 10:54 | Outpatient (REF) | payer OTHER, SELFPAY ==
--- OUTSIDE RECORDS SUMMARY | 2025-03-26 11:43 | XMS_ITS | Data Portability ---
Author Organization [place] - Yessy Kim MD, autoContract Address [address] [place] [address] Care Team Providers Care Investigator Vice Name Role Phone RICHARD LAZAR Primary Care Provider Assessment No assessment recorded. Plan of Treatment Reminders Order Date Submit Date Provider Last Modified By Organization Details Last Modified Time Details Appointments None recorded. Lab CBC w/ auto diff [address] [facility] [address] [place] [address] Tristen Pulido, [place], [address], 0 22:37:38 ccp (cyclic citrullina kai peptide) igg, serum [address] [facility] [address] [place] [address] Tristen Pulido, [place], [address], 0 18:42:48 hepatitis (A+B+C) panel, serum 2019 [facility] [address] [place] [address] Tristen Pulido, [place], [address], 0 13:38:21 rf (rheumatoi d factor), serum [address] [facility] [address] [place] [address] Tristen Pulido, [place], [address], 0 18:17:49 TSH, serum or plasma 2019 [facility] [address] [place] [address] [address], [place], [address], 0 13:38:20 uric acid, serum or plasma [address] [facility] [address] [place] [address] [address], [place], [address], 0 18:17:51 vitamin D3, 25-hydroxy , serum 2019 [facility]), [address] [place] [address] Tristen Pulido, [place], [address], 0 13:38:21 CK (creatine kinase), total, serum [address] [facility] [address] [place] [address] Tristen Pulido, [place], [address], 0 18:17:46 ESR (erythrocy te sedimentat ion rate), blood 2019 [facility] ([facility] [address] [place] [address] [address], [place], [address], 0 13:38:20 C-reactive protein, quantitati ve, serum or plasma 2019 [facility] ([facility]), [address] [place] [address] Tristen Pulido, [place], [address], 0 13:38:21 DEMARCUS (antinucle ar antibodies ) titer + pattern, ifa, serum [address] [facility]), [address] [place] [address] Tristen Pulido, [place], [address], 0 15:12:53 CMP, serum or plasma 2019 [facility] (Lab), [address], [place], [address], 0 18:17:[address] referral 2019 020 michelle Griffin Not available 0 13:58:22 Procedures None recorded. Surgeries None recorded. Imaging None recorded. Medication Orders None recorded. Patient TargetsNo targets recorded. Patient InstructionsNo instructions recorded. Reason for Referral [employer] Referral for Se rum creatinine above reference range 40 yo M with creatinine elevated 1.6 Referring Physician: Yessy Kim, Rheumatology, Encounter Date: 07/09/2020 Results Created Date Observation Date Name Description Value Unit Range Abnormal Flag Note LastModifiedBy Organization Detail LastModifiedTime 07/12/20 20 07/12/2020 CK (crea bertha kinas e), total , serum CK 91 U/L 37-242 Perfo rmed at [facility] re Refer ence Labor atori es, [address], [place] [address] . CLIA 32D05 [id number] Not Available [facility], [place], [address], 07/12/2020 18:17:46 07/12/20 20 07/12/2020 CMP, serum or plasm a sodium 139 mmol/ L 134-14 4 Not Available [facility]Patients, [place], [address], 07/12/2020 18:17:48 07/12/20 20 07/12/2020 CMP, serum or plasm a potassium 3.8 mmol/ L 3.5-5. 1 Not Available [facility]Patients, [place], [address], 07/12/2020 18:17:48 07/12/20 20 07/12/2020 CMP, serum or plasm a chloride 107 mmol/ L 98-111 Not Available [facility]Patients, [place], [address], 07/12/2020 18:17:48 07/12/20 20 07/12/2020 CMP, serum or plasm a CO2 25 mmol/ L 20-30 Not Available [facility]Patients, [place], [address], 07/12/2020 18:17:48 07/12/20 20 07/12/2020 CMP, serum or plasm a anion gap 7 <15 Not Available [facility]Patients, [place], [address], 07/12/2020 18:17:48 07/12/20 20 07/12/2020 CMP, serum or plasm a glucose 96 mg/dL 60-100 Not Available [facility]Patients, [place], [address], 07/12/2020 18:17:48 07/12/20 20 07/12/2020 CMP, serum or plasm a BUN 18 mg/dL 7-31 Not Available [facility]Patients, [place], [address], 07/12/2020 18:17:48 07/12/20 20 07/12/2020 CMP, serum or plasm a creatinine 1.27 mg/dL 0.62-1 .66 Creat inine metho d is IDMS trace able. EstGF R Calcu latio n has been adjus kai. Not Available [facility]Patients, [place], [address], 07/12/2020 18:17:48 07/12/20 20 07/12/2020 CMP, serum or plasm a eGFR non- AM 71 mL/mi n/1.7 3m2 >60 Effec tive 08/13 , CKD EPI eGFR calc repla freddie the MDRD eGFR calc. For more infor stas acuna go to www.k idney .org/ timothy tam als/K DOQI/ gfr. Not Available [facility]Patients, [place], [address], 07/12/2020 18:17:48 07/12/20 20 07/12/2020 CMP, serum [...] [facility]Patients, [place], [address], 07/12/2020 18:17:48 07/12/20 20 07/12/2020 CMP, serum or plasm a calcium 9.7 mg/dL 8.4-10 .4 Not Available [facility]Patients, [place], [address], 07/12/2020 18:17:48 07/12/20 20 07/12/2020 CMP, serum or plasm a total protein 7.9 gm/dL 6.1-8. 2 Not Available [facility]Patients, [place], [address], 07/12/2020 18:17:48 07/12/20 20 07/12/2020 CMP, serum or plasm a albumin 4.3 gm/dL 3.4-4. 7 Not Available [facility]Patients, [place], [address], 07/12/2020 18:17:48 07/12/20 20 07/12/2020 CMP, serum or plasm a globulin 3.6 gm/dL 2.4-4. 2 Not Available [facility]Patients, [place], [address], 07/12/2020 18:17:48 07/12/20 20 07/12/2020 CMP, serum or plasm a bilirubin, total 1.0 mg/dL 0.3-1. 2 Not Available [facility]Patients, [place], [address], 07/12/2020 18:17:48 07/12/20 20 07/12/2020 CMP, serum or plasm a alk phos 72 U/L 38-150 Not Available [facility] rg[facility]Patients, [place], [address], 07/12/2020 18:17:48 07/12/20 20 07/12/2020 CMP, serum or plasm a AST(SGOT) 20 U/L 6-58 Not Available [facility] rg[facility]Patients, [place], [address], 07/12/2020 18:17:48 07/12/20 20 07/12/2020 CMP, serum or plasm a ALT(SGPT) 34 U/L 14-67 Perfo rmed at [facility], [address], [place] [address] . CLIA [id number] Not Available [facility]Patients, [place], [address], 07/12/2020 18:17:48 07/12/2007/12/2020 C react arthur prote in, QN, serum or plasm a C-reactive protein <0.3 mg/dL 0.0-0. 8 Perfo rmed at [facility], [address], [place] [address] . CLIA [id number] Not Available [facility]Patients, [place], [address], 07/12/2020 18:17:49 07/12/20 20 07/12/2020 rf (rheu matoi d facto r), serum rheumatoid factor <10 IU/mL <15.0 Perfo rmed at [facility] re Ref[facility] Labor at[facility], [address], [place] [address] . CLIA 32D05 [id number] Not Available [facility] [facility] rg/Patients, [place], [address], 07/12/2020 18:17:49 07/12/20 20 07/12/2020 TSH, ultra -sens itive , serum TSH 2.770 uIU/m L 0.358- 3.740 All TSH value s repre sent 3rd gener ation TSH. Perfo rmed at [facility] re Ref[facility], [address], [place] [address] . CLIA 32D05 [id number] Not Available [facility], [place], [address], 07/12/2020 18:17:50 07/12/20 20 07/12/2020 uric acid, serum or plasm a uric acid 6.4 mg/dL 3.2-9. 1 Perfo rmed at [facility], [address], [place] [address] . CLIA 32D05 80576 Not Available [facility]Patients, [place], [address], 07/12/2020 18:17:51 07/12/20 20 07/12/2020 nucle ar Ab, QL, IA, serum DEMARCUS screen NEGATI VE negati ve Perfo rmed at [facility] re [facility], [address], [place] [address] . CLIA 32D05 68410 Not Available [facility]Patients, [place], [address], 07/12/2020 18:42:47 07/12/20 20 07/12/2020 ccp (cycl ic citru llina kai pepti de) igg, serum ccp antibody IgG 1.0 U/mL 0.0-2. 9 Perfo rmed at [facility] re [facility], [address], [place] [address] . CLIA [id number] Not Available [facility], [place], [address], 07/12/2020 18:42:48 07/12/20 20 07/12/2020 hepat itis panel (A+B+ C), acute , serum hep B surface Ag NONREA CTIVE nonrea ctive Not Available [facility], [place], [address], 07/12/2020 19:02:48 07/12/20 20 07/12/2020 hepat itis panel (A+B+ C), acute , serum hep B core IgM NONREA CTIVE nonrea ctive Not Available [facility]Patients, [place], [address], 07/12/2020 19:02:48 07/12/20 20 07/12/2020 hepat itis panel (A+B+ C), acute , serum hep A Ab IgM NONREA CTIVE nonrea ctive Not Available [facility]Patients, [place], [address], 07/12/2020 19:02:48 11/02/07/12/2020 hepat itis panel (A+B+ C), acute , serum hep C antibody NONREA CTIVE nonrea ctive Not Available [facility]Patients, [place], [address], 07/12/2020 19:02:48 07/12/20 20 07/12/2020 hepat itis panel (A+B+ C), acute , serum signal/cutof f ratio 0.11 {s_co _rati o} 0.00-0 .89 HCV scree n perfo [facility]med by [facility] HCV Ab assay . Signa l to cutof f ratio s great er than 11 indic ate a true posit arthur 99% of the time. Lyndsay key MD Perfo rmed at [facility] re Ref[facility] Labor at[facility], [address], [place] [address] . CLIA [id number] Not Available [facility]Patients, [place], [address], 07/12/2020 19:02:48 07/12/20 20 07/12/2020 CBC w/ auto diff WBC 6.5 x10e3 /uL 4.0-11 .0 Not Available [facility]Patients, [place], [address], 07/12/2020 22:37:38 07/12/2007/12/2020 CBC w/ auto diff RBC 6.12 x10e6 /uL 4.64-6 .00 high Not Available [facility]Patients, [place], [address], 07/12/2020 22:37:38 07/12/20 20 07/12/2020 CBC w/ auto diff HGB 17.6 gm/dL 13.5-1 7.7 Not Available [facility]Patients, [place], [address], 07/12/2020 22:37:38 07/12/20 20 07/12/2020 CBC w/ auto diff HCT 53 % 42-53 Not Available [facility] rg[facility]Patients, [place], [address], 07/12/2020 22:37:38 07/12/20 20 07/12/2020 CBC w/ auto diff MCV 86 fL 81-101 Not Available [facility]Patients, [place], [address], 07/12/2020 22:37:38 07/12/20 20 07/12/2020 CBC w/ auto diff MCHC 33.3 gm/dL 31.1-3 5.5 Not Available [facility]Patients, [place], [address], 07/12/2020 22:37:38 07/12/20 20 07/12/2020 CBC w/ auto diff RDW 13.0 % 11.0-1 4.5 Not Available [facility]Patients, [place], [address], 07/12/2020 22:37:38 07/12/20 20 07/12/2020 CBC w/ auto diff platelets 200 x10e3 /uL 150-40 0 Not Available [facility]Patients, [place], [address], 07/12/2020 22:37:38 07/12/20 20 07/12/2020 CBC w/ auto diff diff type AUTO DIFF Not Available [facility]i [facility] rg[facility]Patients, [place], [address], 07/12/2020 22:37:38 07/12/20 20 07/12/2020 CBC w/ auto diff neutrophils 63 % Not Available [facility] rg[facility]Patients, [place], [address], 07/12/2020 22:37:38 07/12/20 20 07/12/2020 CBC w/ auto diff lymphocytes 26 % Not Available [facility]Patients, [place], [address], 07/12/2020 22:37:38 07/12/20 20 07/12/2020 CBC w/ auto diff monocytes 7 % Not Available [facility]Patients, [place], [address], 07/12/2020 22:37:38 07/12/20 20 07/12/2020 CBC w/ auto diff eosinophils 3 % Not Available [facility]Patients, [place], [address], 07/12/2020 22:37:38 07/12/20 20 07/12/2020 CBC w/ auto diff basophils 1 % Not Available [facility]Patients, [place], [address], 07/12/2020 22:37:38 07/12/20 20 07/12/2020 CBC w/ auto diff abs. neutrophil 4.0 x10e3 /uL 1.8-7. 0 Not Available [facility]Patients, [place], [address], 07/12/2020 22:37:38 07/12/20 20 07/12/2020 CBC w/ auto diff abs. lymphocyte 1.7 x10e3 /uL 1.0-3. 4 Not Available [facility]Patients, [place], [address], 07/12/2020 22:37:38 07/12/20 20 07/12/2020 CBC w/ auto diff abs. monocyte 0.4 x10e3 /uL 0.2-0. 8 Not Available [facility]Patients, [place], [address], 07/12/2020 22:37:38 07/12/20 20 07/12/2020 CBC w/ auto diff abs. eosinophil 0.2 x10e3 /uL 0.0-0. 3 Not Available [facility]Patients, [place], [address], 07/12/2020 22:37:38 07/12/20 20 07/12/2020 CBC w/ auto diff abs. basophil 0.1 x10e3 /uL 0.0-0. 1 Perfo rmed at [facility] re [facility], [address], [place] [address] . CLIA [id number] Not Available [facility], [place], [address], 07/12/2020 22:37:38 07/12/20 20 07/12/2020 eryth rocyt e sedim entat ion rate by diego davisren metho d ESR westergren 2 mm/HR 0-15 Perfo rmed at [facility] re [facility], [address], [place] [address] . CLIA [id number] Not Available [facility], [place], [address], 07/13/2020 00:22:51 07/12/20 20 07/13/2020 DEMARCUS (anti nucle ar antib odies ) titer + darleen moya, ifa, serum DEMARCUS titer 1:40 titer negati ve abnormal Not Available [facility]Patients, [place], [address], 07/13/2020 15:12:53 11/02/07/13/2020 DEMARCUS (anti nucle ar [...] a is suspe ct, recom mend anti- ENVELOPE SEALING MACHINE OPERATOR, anti- Sm and anti- DNA, or Scl-7 0 antib katrina. Perfo rmed at [facility] re [facility] Labor at[facility], [address], [place] [address] . CLIA [id number] Not Available [facility]Patients, [place], [address], 07/13/2020 15:12:53 07/12/2007/16/2020 vitam in D, 25-hy droxy , total , serum D2 <5 NG/mL Not Available [facility]Patients, [place], [address], 07/16/2020 08:47:53 07/12/2007/16/2020 vitam in D, 25-hy droxy , total , serum D3 17 NG/mL Not Available [facility]Patients, [place], [address], 07/16/2020 08:47:53 07/12/2007/16/2020 vitam in D, 25-hy [...] ng. This test is used for clini idane purpo ses. It shoul d not be regar ded as inves tigat ional or for resea rch. Perfo rmed at [facility], [address], [place] [address] . CLIA [id number] Not Available [facility], [place], [address], 07/16/2020 08:47:53 Result Notes None recorded. 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 07/30 completed Not Available Not Available Not Available BISQUE FINISHER Thyroid 15 mg tablet TAKE 1 TABLET BY MOUTH ONCE DAILY 07/09 completed Not Available Not Available Not Available Vitals Date Recorded Body temperature Provider Name a nd Address Organization Details Last Updated DateTime 07/09/2020 96.9 [degF] Kailee Kim MD 07/09/2020 12:26:27 Date Recorded Body weight Body mass index (BMI) Body height Systolic And Diastolic Provider Name and Address Organization Details Last Updated DateTime 07/09/2020 62928.81 g 28.5 kg/m2 170.18 cm 132/68 mm[Hg] Kalpana Kim MD 07/09/2020 13:05:28 Date Recorded Body height Body temperature Body mass index (BMI) Body weight Systolic And Diastolic Provider Name and Address Organization Details Last Updated DateTime 07/30/2020 170.18 cm 97.1 [degF] 29.4 kg/m2 63177.3 7 g 114/68 mm[Hg] Kalpana Clemente Kim MD 0 12:05:23 [...] COVID-19 While That Case Was Ill? No [email or web address] Information n ot available 07/09/2020 In The 14 Days Before Symptom Onset, Have You Had Close Contact With A Person Who Is Under Investigation For COVID-19 While That Person Was Ill? No [email or web address] Information not available 07/09/2020 Have You Been To An Area Known To Be High Risk For COVID-19? No Information not available 07/09/2020 Marital Status Single [email or web address] Informat ion not available 07/05/2020 How Many Years Have You Smoked Tobacco? 15 [email or web address] Information not available 07/05/2020 Sex: Unknown Functional Status Question Answer Note LastModified by Organizat ion Details LastModified Time What is your level of alcohol consumption? None [email or web address] Information not available 07/05/2020 What is your occupation? [employer] [email or web address] Information not available 07/09/2020 What is your exercise level? Moderate Gym and hike [email or web address] Information not available 07/05/2020 Mental Status None recorded. Family History Relationship Description Onset Age of this Age Resolved Age Notes LastModified by Organization Details LastModified Time Maternal Grandfather Heart disease [email or web address] Not available 12:37:16 Medical History Condition Response Anxiety Disorder Y Migraines Y Depression Y GERD/Reflux Y Past Encounters Encounter ID Performer Location Encounter Start Date Encounter Closed Date Diagnosis/Indication Diagnosis SNOMED-CT Code Diagnosis ICD10 Code Diagnosis Note [id number] Yessy Kim MD MAIN OFFICE [address] [place] [address] 07/09/2020 12:11:30 07/09/2020 13:40:14 Muscle pain 30686757 M79.18 I am concerned he is having side effects from itraconazo le since pain, fatigue and myalgias are common reactions. Discussed holding this to assess. Serum crea tinine above reference range 987516536 R79.89 Will recheck. Have advised him to avoid NSAIDs. I have given him a nephrology referral and if still elevated he will schedule this. Pain of mu ltiple joints 54014685 M25.561 M25.562 Will evaluate for inflammato ry arthritis. [id number] Yessy Kim MD MAIN OFFICE [address] [place] [address] 07/30/2020 11:58:46 07/30/2020 12:30:16 Muscle pain 63778160 M79.18 Likely 2/2 itraconazo le, now improved. Renal function has also normalized . Discussed his normal lab panel. If he has new concerns I would be happy to see this pleasant patient back. Otherwise I will discharge him to the care of his primary. Vitamin D deficiency 347 44933 E55.9 Continue 50,000 IU weekly. Recommend rechecking level in 6 months. Health Concerns Section Related Observation LastModified by Organization Detai ls LastModified Time None Recorded Concern Status LastModified by Organization Details LastModified Time None Recorded Advance Directives Directive N: Payers Insurance Date Sequence Insurance Name Policy Number Policy Silva Covered Member ID Silva Member ID Guarantor Name 07/30/2020 1 [facility] CONNECTIONS - DOS ON OR AFTER 19 ([facility] Freda Rivero [id number] Freda Rivero Notes Date Note Type Note Provider Name and Address Organization Details Recorded Time 07/09/2020 text/html 40 yo M referred for evaluation of joint pain. He has pain in his knees and elbows. He was diagnosed with Lyme disease 4 years ago when he was in the [facility]. He was treated with doxycycline for [...] sensitivity. No back pain. Yessy Kim MD [address] [place], [address], [place] - Yessy Kim MD 07/09/2020 13:43:57 07/30/2020 text/html 40 yo M referred for evaluation of joint pain. He has pain in his knees and elbows. He was diagnosed with Lyme disease 4 years ago when he was in the [facility]. He was treated with doxycycline for [...] again and doing well. Yessy Kim MD [address] [facility], [place], [address], RENNY - Yessy Kim MD 07/30/2020 12:34:57
== END 2025-03-26 10:55 | disposition home or self-care (01) ==
LOC: HO.BBR 10:54
PROVIDERS: Visit Provider Family Medicine
DX: D75.1 Secondary polycythemia (principal)
CPT/HCPCS: 85018; 99195

== ENCOUNTER 2025-06-11 10:01 | Outpatient (REF) | payer OTHER, SELFPAY | END 2025-06-11 10:02 | disposition home or self-care (01) | LOC: HO.BBR 10:01 | PROVIDERS: PCP Family Medicine; Visit Provider Family Medicine | DX: D75.1 Secondary polycythemia (principal) | CPT/HCPCS: 85018; 99195 ==

== ENCOUNTER 2025-09-08 11:56 | Outpatient (REF) | payer OTHER, SELFPAY | END 2025-09-08 11:57 | LOC: HO.BBR 11:56 | PROVIDERS: PCP Family Medicine; Visit Provider Family Medicine | DX: D75.1 Secondary polycythemia (principal) | CPT/HCPCS: 85018; 99195 ==